=== PATIENT | male | born 1955 | race Caucasian/White ===

== ENCOUNTER 2021-03-28 10:22 | Inpatient (IN) | payer OTHER ==
[~2021-03-28] VITALS: Ht 172.7 cm; Wt 99.0 kg
[2021-03-28 10:43] VITALS: BP 149/91
[2021-03-28 11:03] LABS: URINE BLOOD 2+ (Negative); URINE CLARITY CLEAR; URINE COLOR YELLOW; URINE GLUCOSE-RANDOM* NEGATIVE (Negative); URINE KETONES 1+ (Negative); URINE LEUKOCYTES-REFLEX NEGATIVE (Negative); URINE NITRITE-REFLEX NEGATIVE (Negative); URINE PROTEIN (DIPSTICK) 2+ (Negative); URINE SPECIFIC GRAVITY >= 1.030 (1.005-1.035); URINE UROBILINOGEN 0.2 E.U./dl (0.2-1.0)
[2021-03-28 11:06] LABS: ICTOTEST (BILI CONFIRMATORY) Negative (Negative); URINE BILIRUBIN NEGATIVE (Negative)
[2021-03-28 11:15] LABS: BACTERIA-REFLEX 1-9 Few /HPF (None Seen); CRYSTALS None Seen /LPF (None Seen); HYALINE CASTS 4-10 Moderate /LPF (None Seen); SQUAMOUS None Seen /LPF (0-3); URINE RBC None Seen /HPF (NONE SEEN); URINE WBC-REFLEX 0-5 Rare /HPF (0-5)
[2021-03-28 12:09] LABS: ABSOLUTE NEUTROPHILS 4.6 thou/uL (1.4-8.2); BASOPHILS 0.7 % (0.0-2.0); HEMATOCRIT 44.6 % (42.0-52.0); HEMOGLOBIN 15.6 gm/dL (14.0-18.0); LYMPHOCYTES 16.1 % (24.0-44.0); MCH 31.9 pg (26.0-34.0); MCV 91.1 fL (80.0-100.0); MONOCYTES 10.9 % (1.0-8.0); PLATELET COUNT 193 thou/uL (150-400); POLYS 72.3 % (36.0-66.0); RBC 4.89 mil/uL (4.50-6.00); RDW 13.4 % (10.5-14.5); WBC 6.4 thou/uL (4.0-11.0)
[2021-03-28 12:20] LABS: ANION GAP 11 mmol/L (7-16); BUN 17 mg/dL (7-18); CALCIUM 10.3 mg/dL (8.5-10.1); CHLORIDE 101 mmol/L (98-107); CO2 24 mmol/L (21-32); CREATININE 1.2 mg/dL (0.7-1.3); GLUCOSE 105 mg/dL (74-106); POTASSIUM 3.9 mmol/L (3.5-5.1); SODIUM 136 mmol/L (136-145)
[2021-03-28 12:31] LABS: ALBUMIN 3.1 g/dL (3.4-5.0); LIPASE 103 U/L (73-393); SGOT 103 U/L (15-37); SGPT 76 U/L (30-65); TOTAL BILIRUBIN 0.5 mg/dL (0.2-1.0); TOTAL PROTEIN 7.3 g/dL (6.4-8.2); TROPONIN-I <0.06 ng/mL (<0.06)
[2021-03-28 13:05] LABS: PROTIME 10.9 Seconds (10.5-12.1)
[2021-03-28 15:54] VITALS: BP 150/81
[2021-03-28 16:23] LABS: FOLIC ACID 16.8 ng/mL (8.6-58.9)
[2021-03-28 16:45] VITALS: BP 150/81
[2021-03-28 17:06] VITALS: BP 134/70
--- NOTE | 2021-03-28 18:44 | NUR ---
ADMISSION: PT TO UNIT ON CART, UNSTEADY AMBULATION, SLIGHT CONFUSION. ANXIETY REPORTED. AVAILABLE VIA CELL PHONE [phone]. PT HAS BEEN WORKING PRIOR TO COMING TO ED. WAS CONFUSED WITH DRIVING YESTERDAY. PT TAKING SMALL SIPS OF DRINK. NO N/V AT THIS TIME. PT UNABLE TO HAVE BM, NOT ABLE TO GET CDIFF SAMPLE. COVID AND FALL PRECAUTIONS IN PLACE. IV R FOREARM, 22G. COBAN APPLIED. PT STATES ANXIETY IS DUE TO NEVER BEING IN HOSPITAL, PRN ANTI ANXIETY ADMINISTERED.
[2021-03-28 19:37] VITALS: BP 121/74
--- NOTE | 2021-03-28 22:39 | NUR ---
PT RESTING IN BED AROUSED AWAKE WITH TOUCH AND NAME. PT IS IMPULSIVE DISORIENTED TO TIME, TRYS TO GET OOB TO USE TOILET EVEN THOUGH INSTRUCTED TO CALL FOR HELP, USE URINAL AND ATTACHED TO IVF. BED ALARM ON. LUNGS DIMINISHED, FLUSHED SKIN TONE. PT DELCINED HS SNACK REPORTING DECREASE APPETITE.
[2021-03-29 03:28] VITALS: BP 152/79
--- NOTE | 2021-03-29 04:14 | NUR ---
TEMP ELEVATED PROVIDER NOTIFIED PRN PROVIDED.
--- NOTE | 2021-03-29 04:48 | NUR ---
TALKED WITH PT AND HIS REGARDING THE STARTING OF REMDESIVIR. PT AND CONSENTED.
[2021-03-29 07:26] VITALS: BP 146/78
--- NOTE | 2021-03-29 07:38 | EKG ---
[place] [address] [facility] [employer] [place] [address] ELECTROCARDIOGRAM REPORT Name: AUGUSTIN JOHNSON Room #: 352-P ADM IN M.R.#: [id number] Admission: 03/28/21 Attend Phys: Loren Burciaga MD Discharge: Date of : 57 Report #: [id number] [facility] ED Test Date: 2021-03-28 Test Time: 11:55:53 Pat Name: AUGUSTIN JOHNSON Department: Room: 352 Gender: M Interventional Neuroradiologist: NANO : 1955 Requested By: Rosa Woodall Order Number: [id number] MD: Eugene Velez Measurements Intervals [place] Rate: 93 P: -28 [place]: 166 QRS: -17 QRSD: 72 T: 2 QT: 313 QTc: 390 Interpretive Statements Sinus rhythm Atrial premature complex Abnormal R-wave progression, early transition LVH by voltage No previous ECG available for comparison Electronically Signed On 03-29-2021 7:38:38 CDT by Eugene Velez [email or web address] <ELECTRONICALLY SIGNED> By: Eugene Velez MD, [facility] 03/29/21 0738 [id number] 1155 Eugene Velez MD, FACC /EPI
[2021-03-29 07:39] LABS: HEMATOCRIT 43.8 % (42.0-52.0); MCH 31.4 pg (26.0-34.0); MCHC 34.3 g/dL (28.0-37.0); MCV 91.8 fL (80.0-100.0); PLATELET COUNT 236 thou/uL (150-400); RBC 4.78 mil/uL (4.50-6.00); RDW 13.4 % (10.5-14.5); WBC 7.8 thou/uL (4.0-11.0)
[2021-03-29 08:01] LABS: CALCIUM 9.9 mg/dL (8.5-10.1); MAGNESIUM 1.9 mg/dL (1.8-2.4); POTASSIUM 3.5 mmol/L (3.5-5.1)
[2021-03-29 08:17] LABS: ABSOLUTE NEUTROPHILS 6.2 thou/uL (1.4-8.2)
[2021-03-29 08:18] LABS: PLATELET ESTIMATE NORMAL
[2021-03-29 11:22] VITALS: BP 137/79
[2021-03-29 15:14] VITALS: BP 125/50
[2021-03-29 15:55] LABS: ALBUMIN 2.8 g/dL (3.4-5.0); DIRECT BILIRUBIN 0.1 mg/dL (<0.1-0.2); TOTAL BILIRUBIN 0.4 mg/dL (0.2-1.0); TOTAL PROTEIN 6.7 g/dL (6.4-8.2)
--- NOTE | 2021-03-29 16:25 | NUR ---
ASSESSMENT: CM REVIEWED CHART AND SPOKE WITH PT VIA PHONE. PT IS ALERT AND ORIENTED X4. PT WAS ADMITTED DUE TO FLULIKE SYMPTOMS AND IS POSITIVE FOR COVID 19. PT REPORTS THAT HE RECEIVED THE GASTON AND GASTON VACCINE ABOUT 9 DAYS AGO. PT REPORTS THAT HE LIVES IN A CONDO WITH HIS . PT REPORTS THAT HE HAS NO STEPS TO ENTER. PT REPORTS BEING FULLY INDEPENDENT WITH ADLS AND AMBULATION. PT REPORTS THAT HE CURRENTLY HAS NO PCP OR INSURANCE. PT REPORTS THAT HE WAS LET GO FROM HIS JOB DURING THE PANDEMIC AND THOUGHT HE IS SO CLOSE TO 66 HE WOULD WAIT IT OUT UNTIL MEDICARE BUT REPORTS CAME DOWN WITH COVID. PT REPORTS HE HAS SAVINGS SO CAN TRY TO GET BY WITH [facility] PRIVATE PAY UNTIL THEN. CM STATED THAT CM CAN PROVIDE PATIENT WITH PCP INFORMATION OR SAFETY NET PACKET/[facility] AT TIME OF DISCHARGE. PT DOES NOT WEAR OXYGEN AT HOME AND IS NOT REQUIRING ANY OXYGEN AT THIS TIME. PT HAS NO HX OF HH OR SNF. CM DISCUSSED ROLE. CM WILL CONTINUE TO FOLLOW TO ASSIST NEEDED. PT IS HOPEFUL HE WILL HAVE NO NEEDS.
--- NOTE | 2021-03-29 16:59 | NUR ---
ASSUMED PAYTIENT CARE AT 0700. A/O X3. LOOSE STOOL. TOLERATED ON RA. SLOWLY TOWARDS POC GOALS.
[2021-03-29 20:21] VITALS: BP 140/71
[2021-03-30 05:24] VITALS: BP 153/83
--- NOTE | 2021-03-30 05:57 | NUR ---
Pt. able to answer orientation questions except date. He is impulsive at times. Slept well during the night. Tolerating room air well with no respiratory distress. SB-SR per tele. Cont. on enhanced precaution , afebrile. Bed alarm on. Voiding per urinal.
[2021-03-30 07:25] LABS: ALBUMIN 2.6 g/dL (3.4-5.0); ANION GAP 10 mmol/L (7-16); BUN 18 mg/dL (7-18); CALCIUM 10.7 mg/dL (8.5-10.1); CHLORIDE 109 mmol/L (98-107); CO2 24 mmol/L (21-32); DIRECT BILIRUBIN < 0.1 mg/dL (<0.1-0.2); GLUCOSE 134 mg/dL (74-106); PHOSPHORUS 2.5 mg/dL (2.6-4.7); POTASSIUM 3.9 mmol/L (3.5-5.1); SGOT 105 U/L (15-37); SGPT 100 U/L (16-63); SODIUM 143 mmol/L (136-145); TOTAL BILIRUBIN 0.4 mg/dL (0.2-1.0); TOTAL PROTEIN 6.8 g/dL (6.4-8.2)
[2021-03-30 07:38] VITALS: BP 142/77
[2021-03-30 11:40] VITALS: BP 137/74
[2021-03-30 15:33] VITALS: BP 145/87
--- NOTE | 2021-03-30 15:40 | NUR ---
SW reviewed chart and spoke with nursing and attending physician. Pt remains in Enhanced Isolation due to COVID. Pt is afebrile and not requiring O2. Pt is on IV steroids and completing course of Remdesivir. Discharge home is anticipated in 1-2 days. [facility] to screen pt for [place]-Medicaid (due to COVID) and financial assistance. Therapy has evaluated pt and discharged from their services. Plan is for pt to discharge home when medically stable. [facility] is following to assist as needed with discharge planning.
--- NOTE | 2021-03-30 18:30 | NUR ---
ASSUMED PATIENT CARE AT 0700. A/O X4 BUT FORGETFUL. UP AD NATHAN. PROGESSING TOWARDS POC GOALS.
[2021-03-30 19:55] VITALS: BP 155/80
[2021-03-31 02:34] LABS: HEMOGLOBIN 15.1 gm/dL (14.0-18.0); MCHC 35.1 g/dL (28.0-37.0); MCV 91.3 fL (80.0-100.0); RBC 4.71 mil/uL (4.50-6.00); RDW 13.4 % (10.5-14.5); WBC 7.2 thou/uL (4.0-11.0)
[2021-03-31 02:47] LABS: ALBUMIN 2.6 g/dL (3.4-5.0); CALCIUM 10.5 mg/dL (8.5-10.1); DIRECT BILIRUBIN 0.1 mg/dL (<0.1-0.2); PHOSPHORUS 2.6 mg/dL (2.5-4.9); POTASSIUM 4.1 mmol/L (3.5-5.1); TOTAL BILIRUBIN 0.4 mg/dL (0.2-1.0); TOTAL PROTEIN 6.8 g/dL (6.4-8.2)
[2021-03-31 02:48] LABS: PLATELET COUNT 314 thou/uL (150-400)
[2021-03-31 04:10] VITALS: BP 143/77
[2021-03-31 05:40] LABS: ABSOLUTE NEUTROPHILS 5.2 thou/uL (1.4-8.2)
[2021-03-31 05:41] LABS: PLATELET ESTIMATE NORMAL
--- NOTE | 2021-03-31 07:10 | NUR ---
Up in the recliner chair till HS. Up ad porfirio in room with steady gait.Requested tylenol for generalized discomfort stating it helps him sleep as well. Tolerating room air well with no respiratory distress. Cont. on enhanced precaution , afebrile. Voided per urinal and also in the toilet. Making some progress towards care plan goals.
[2021-03-31 07:32] VITALS: BP 157/82
[2021-03-31 11:23] VITALS: BP 149/85
[2021-03-31 15:26] VITALS: BP 150/76
--- NOTE | 2021-03-31 15:52 | NUR ---
SW reviewed chart and spoke with nursing and attending physician. Pt remains in Enhanced Isolation due to COVID. Pt is afebrile and not requiring O2. Pt is completing course of Remdesivir. Weekend discharge to home anticipated. SW spoke with pt via phone to discuss discharge plan. Pt is aware and in agreement with plan. SW is following to assist as needed [facility] discharge planning.
--- NOTE | 2021-03-31 17:27 | NUR ---
assumed care of pt at 0700. pt alert and oriented in no acute distress. up ad porifrio w/ steady gait. voicing no particular concerns. calls appropriately. anticipate d/c 04/02/21 once done with course of remdesivir.
[2021-03-31 19:49] VITALS: BP 159/86
[2021-04-01 03:12] LABS: ALBUMIN 2.7 g/dL (3.4-5.0); CALCIUM 10.2 mg/dL (8.5-10.1); CREATININE 0.9 mg/dL (0.7-1.3); DIRECT BILIRUBIN 0.2 mg/dL (<0.1-0.2); PHOSPHORUS 2.9 mg/dL (2.5-4.9); POTASSIUM 4.6 mmol/L (3.5-5.1); TOTAL BILIRUBIN 0.5 mg/dL (0.2-1.0); TOTAL PROTEIN 6.5 g/dL (6.4-8.2)
[2021-04-01 03:36] VITALS: BP 149/71
--- NOTE | 2021-04-01 04:54 | NUR ---
Pt. stated he slept well during the night. Cont. on enhanced precaution , afebrile. Tolerating room air well with O2 sat in the low 90's. Tylenol given per his request and said it helped him rest. Ambulates to bathroom on his own and uses urinal at times. Making some progress towards care plan goals.
[2021-04-01 07:36] VITALS: BP 152/85
[2021-04-01 10:20] LABS: D-DIMER 0.45 ug/mLFEU (0.19-0.50); INR 1.05; PROTIME 11.4 Seconds (10.5-12.1)
[2021-04-01 11:38] VITALS: BP 162/92
--- NOTE | 2021-04-01 14:31 | NUR ---
SW reviewed chart and spoke with nursing and attending physician. Pt remains in Enhanced Isolation due to COVID. Pt is afebrile and not requiring O2. Pt to finish course of Remdesivir tomorrow and will discharge home. Rest/exercise oximetry completed today. Pt does not require home O2. [facility] has applied for [place] on pt's behalf. SW spoke with pt via phone to discuss discharge plan. Pt is agreeable. SW placed [facility] and prescription discount card on pt's chart. Contact info for [facility] placed in pt's discharge summary. Pt's family will be able to provide transportation home. No additional SW needs identified at this time, but is available to assist should needs arise.
[2021-04-01 14:35] VITALS: BP 162/92
[2021-04-01 16:19] VITALS: BP 175/97
--- NOTE | 2021-04-01 19:36 | NUR ---
RN ASSUMED PT'S CARE AT 0700-1900PM,PT IS A&OX4, PT IS ON RA, PT IS ON COVID MEDICATIONS, PT 'S VS ARE STABLE AT DAY SHIFT.
--- NOTE | 2021-04-01 22:41 | NUR ---
PT RESTING IN BED WATCHING TV. PT [place]. PT VERBALIZED ANXIETY AND RESTLESSNESS PROVIDED PRN. PT ASKS REPETITIVE QUESTIONS, HE IS FORGETFUL. PT ASKS QUESTIONS IF HE HAS DEVELOPMENTAL DELAY. CALLED VERBALIZED WANTING DC INSTRUCTIONS TOMORROW SINCE PT HAS CONFUSION. DROPPED OF CLOTHES AND TOILETRIES FOR . LUNGS DIMINISHED IN BASES, FLUSHED SKIN TONE. PT CALLS FOR ASSIST.
[2021-04-02 05:36] VITALS: BP 174/88
[2021-04-02 07:24] VITALS: BP 155/68
[2021-04-02 09:26] LABS: ALBUMIN 2.8 g/dL (3.4-5.0); DIRECT BILIRUBIN 0.2 mg/dL (<0.1-0.2); PHOSPHORUS 2.3 mg/dL (2.6-4.7); POTASSIUM 4.3 mmol/L (3.5-5.1); TOTAL BILIRUBIN 0.6 mg/dL (0.2-1.0); TOTAL PROTEIN 6.6 g/dL (6.4-8.2)
[2021-04-02] MEDS ORDERED: VITAMIN B-1100 M2 PO (12:57)
[2021-04-02] MEDS ORDERED: ZINC SULFATE50 MG PO (12:57)
[2021-04-02] MEDS ORDERED: VITAMIN C1000 MG PO (12:57)
[2021-04-02] MEDS ORDERED: PREDNISONE 20 M20 MG PO (12:57)
[2021-04-02] MEDS ORDERED: PROTONIX40 M2 PO (12:57)
[2021-04-02 15:34] VITALS: BP 148/85
--- NOTE | 2021-04-02 15:44 | NUR ---
RN ASSUMED PT'S CARE AT 0700AM, PT IS A&OX4, PT HAS FINISHED LAST DOSE COVID MEDICATION REMDESIVIR TODAY, PT IS ON ROOM AIR , PT DENIES SOB AND N/V , PT CAN GO TO BATH ROOM WITHOUT ASSIST, PT MAY DC TO HOME TODAY.
--- NOTE | 2021-04-02 17:14 | NUR ---
RN RECEIVED ORDER TO DC PT TO HOME, PT UNDERSTANDS DC TEACHING WELL , ECONOMIC HISTORY TEACHER SENT PT TO PT'S DAUGHTER'S CAR AT 1700PM.
== END 2021-04-02 17:20 | disposition home or self-care (01) | DRG 177 ==
LOC: ER 10:22 → EROBS 16:34 → 3W 16:35
PROVIDERS: Nurse Practitioner; Physician Assistant; Specialist; ADMIT Hospitalist; ATTEND Hospitalist
PROC: XW033E5 Introduction of Remdesivir Anti-infective into Peripheral Vein, Percutaneous Approach, New Technology Group 5 (ICD-10-PCS; principal; 2021-03-29)
DX: U07.1 COVID-19 (principal); J96.01 Acute respiratory failure with hypoxia; J12.82 Pneumonia due to coronavirus disease 2019; G93.40 Encephalopathy, unspecified; R74.01 Elevation of levels of liver transaminase levels; G72.9 Myopathy, unspecified; K52.9 Noninfective gastroenteritis and colitis, unspecified; K76.0 Fatty (change of) liver, not elsewhere classified; E66.9 Obesity, unspecified; Z68.33 Body mass index [BMI] 33.0-33.9, adult; Z79.899 Other long term (current) drug therapy
CPT/HCPCS: 10879